=== PATIENT | male | born 1995 | race Caucasian/White ===

== ENCOUNTER 2019-09-19 19:35 | Emergency (ER) | payer BC, SELFPAY ==
[2019-09-19 19:40] VITALS: BP 131/69; PULSE 106; RESP 14; TEMP 37.2; O2SAT 97
--- NOTE | 2019-09-19 19:57 | ED.GENADUL_ITS ---
Discharge Plan Disposition Patient Disposition: HOME Condition: Stable Discharge Details Chief Complaint: Fever Clinical Impression: Pneumonia and influenza Primary Care Provider: None,None ED Provider: Elza Keita Home Meds and New Rx's Prescriptions: No Action No Known Home Meds RF: 0 Discharge Instructions Instructions: Viral Pneumonia (ED), Dehydration (ED), Influenza (ED) Additional Instructions: Please return immediately to the emergency department if you develop any new or worsening symptoms, if your condition does not improve as expected, or if you become otherwise concerned. It is extremely important that you call soon as possible to make an appointment to be seen in follow-up for this visit by your primary care doctor. Medical Decision Making David Newton is a 24 y/o man without history of medical problems who presented to the emergency department on day 4 of body aches, intermittent fever/chills, cough with occasional posttussive emesis. On exam patient is well and nontoxic appearing. Mucous membranes are moist. Patient tachycardic at 106 in triage, heart rate 96 on my exam. Normal work of breathing, lungs clear to auscultation. Concern for influenza, pneumonia, other viral respiratory illness. Exam/history at this time is not consistent with sepsis, pulmonary embolism, acute coronary syndrome, meningitis, significant metabolic/electrolyte derangement. Patient does not appear to be significantly dehydrated, however he reports that his mouth feels dry and he requests IV fluid hydration as opposed to p.o. hydration. Plan for IV fluid, flu swab, chest x-ray. Flu swab positive for influenza B. Chest x-ray positive for right upper lobe pneumonia. Patient's roommate is also being seen here in the emergency department for similar symptoms, patient consents for his roommate to be told that he tested positive for influenza B. On reassessment, reports that he has continued body aches but feels somewhat better after fluids. He is requesting discharge to home at this time. Exam/history is not consistent with pneumonia caused by bacterial superinfection. Tamiflu not indicated at this time given time course. I had a lengthy discussion with Patient regarding return to emergency department precautions, home care, and importance of outpatient follow-up with [facility]. Pt verbalizes understanding of the plan and is amenable. Patient discharged to home with clear plan for outpatient follow-up. All questions were answered. Disposition decision was made weighing the risks and benefits of hospitalization versus outpatient treatment, the risk for further decompensation, and the patient's wishes. Medical Records Medical records reviewed: Yes I reviewed the patient's medical records. Imaging Data Radiologic Study: Attestation: I personally reviewed and interpreted this imaging study as follows: Radiologist's impression: Exam: XR Chest, 2 Views Exam date and time: 09/19/2019 8:43 PM Age: 24 years old Clinical indication: Cough and shortness of breath; Patient HX: Productive cough xsince Monday, fever, SOB TECHNIQUE: Imaging protocol: XR of the chest Views: 2 views. COMPARISON: No relevant prior studies available. FINDINGS: Lungs: Patchy right upper lobe infiltrate. No consolidation. Pleural space: Unremarkable. No pleural effusion. No pneumothorax. Heart/Mediastinum: Unremarkable. No cardiomegaly. Bones/joints: Unremarkable. IMPRESSION: Right upper lobe pneumonia. Lab Data Lab results reviewed: Yes I reviewed the patient's lab results. Labs: 09/19/19 19:45 Nasopharynx Influenza Types A,B Antigen - Final HPI General Mode of arrival: ambulatory . Date/Time Provider Initiated Documentation: 09/19/19 19:56 . Limitations to Documentation: no limitations . Information obtained by: patient, RN notes reviewed and old records reviewed . HPI Narrative: David Newton is a 24-year-old man without reported history of medical problems presenting to the emergency department with cough. Patient reports that on 09/16/2019 he developed generalized body aches, cough, and intermittent fever/chills. Patient reports that symptoms have been persistent since onset. He reports that he has occasionally had vomiting with coughing. He reports that he has not vomited except for at the end of a coughing spell. He denies pain other than generalized body aches, denies shortness of breath, rash, numbness, focal weakness, diarrhea. Patient reports that he has had no appetite since onset of symptoms, but has been drinking fluids. Patient reports that his girlfriend tested positive for influenza B last week. He denies any recent travel or contact with somebody who has traveled recently. Related Data Home Medications Medication Instructions Recorded Confirmed Unknown [No Known Home Meds] 09/19/19 09/19/19 Allergies Allergy/AdvReac Type Severity Reaction Status Date / Time No Known Allergies Allergy Unverified 09/19/19 19:45 General Stated Complaint: Fever MINNIE: 3 Review of Systems Narrative: Constitutional: Reports intermittent fever and chills Eyes: denies eye pain ENT: denies ear pain, dental pain, sore throat Cardiovascular: denies chest pain Respiratory: denies SOB, reports cough GI: denies abdominal pain, diarrhea, reports posttussive emesis : denies flank pain MSK: denies back pain, neck pain, reports generalized arthralgias/myalgias Skin: denies rash Neuro: denies headaches, numbness, weakness [facility] Social History Smoking/Tobacco Use Status: Never Alcohol Intake: current Alcohol Intake frequency: a few times a month Drug use: Occasionally Substance use type: marijuana Do you feel safe at home: Yes Do you feel safe in your relationship?: Yes Exam Narrative Exam Narrative: Constitutional: well and [id number], pleasant, conversing normally HENT: head atraumatic/normocephalic/normal inspection, mucous membranes moist Eyes: conjunctiva normal, sclera normal, pupils 3mm b/l Neck: no stridor, normal ROM, trachea midline Chest: normal inspection Resp: normal work of breathing, LCTAB Cardio: normal rate, normal rhythm, no murmur appreciated GI: abdomen soft, non-tender, non-distended Back: normal inspection, no rash Skin: warm, dry, normal color, no rash Neuro: alert, not altered, grossly non-focal, normal tone Ext: no edema, no posterior calf tenderness to palpation Psych: normal mood, normal affect, normal behavior Course Vital Signs Vital signs: Vital Signs Temperature 37.2 C 09/19/19 19:40 Pulse 106 H 09/19/19 19:40 Respiratory Rate 14 09/19/19 19:40 Blood Pressure 131/69 09/19/19 19:40 Pulse Oximetry 97 09/19/19 19:40 Temperature 37.2 C 09/19/19 19:40 Temperature Source Skin 09/19/19 19:40 Pulse 106 H 09/19/19 19:40 Respiratory Rate 14 09/19/19 19:40 Respiratory Effort 09/19/19 19:45 Blood Pressure 131/69 09/19/19 19:40 Blood Pressure Position Sitting 09/19/19 19:40 Pulse Oximetry 97 09/19/19 19:40 Oxygen Delivery Method Room Air 09/19/19 19:40 Oxygen Flow Rate 0 09/19/19 19:40 Pain Level 8 09/19/19 19:40 Lab/Test Results Lab/Test Results: 09/19/19 19:45 Nasopharynx Influenza Types A,B Antigen - Pending
[2019-09-19] MEDS: Normal Saline 1,000 ML 1000 ML IV (20:20)
[2019-09-19] MEDS: Normal Saline Flush 10 ML SYR IVP (20:20)
--- NOTE | 2019-09-19 20:50 | DI.RAD_ITS ---
EXAM: XR CHEST 2V PA LATERAL INDICATION: cough. COMPARISON: No exams were available for comparison TECHNIQUE: 2D digital imaging was performed. FINDINGS: The cardiac and mediastinal contours have a normal appearance. There is a patchy infiltrate seen i n the anterior right upper lobe consistent with pneumonia. The left lung appears clear. There are n o effusions. No bony abnormalities are identified. IMPRESSION: Right upper lobe pneumonia. DATA REPOSITORY: RADIATION DOSE DELIVERED:
--- NOTE | 2019-09-19 21:05 | DI.VRAD_ITS ---
PROCEDURE INFORMATION: Exam: XR Chest, 2 Views Exam date and time: 09/19/2019 8:43 PM Age: 24 years old Clinical indication: Cough and shortness of breath; Patient HX: Productive cough xsince Monday, fever, SOB TECHNIQUE: Imaging protocol: XR of the chest Views: 2 views. COMPARISON: No relevant prior studies available. FINDINGS: Lungs: Patchy right upper lobe infiltrate. No consolidation. Pleural space: Unremarkable. No pleural effusion. No pneumothorax. Heart/Mediastinum: Unremarkable. No cardiomegaly. Bones/joints: Unremarkable. IMPRESSION: Right upper lobe pneumonia. Dictated and Authenticated by: Sebastian Alcala MD. Ordering:FOSTER Bertrand MD
[2019-09-19] MEDS: Ibuprofen 600 MG TAB PO (21:59)
[2019-09-19 22:02] VITALS: BP 127/59; PULSE 93; RESP 16; TEMP 38.8; O2SAT 97
== END 2019-09-19 22:00 | disposition home or self-care (01) ==
PROVIDERS: Emergency Provider Student in an Organized Health Care Education/Training Program
DX: J10.00 Influenza due to other identified influenza virus with unspecified type of pneumonia (principal)
CPT/HCPCS: 36415; 87449; 96360; 96361; 99284; 71046